=== PATIENT | female | born 1955 | race Caucasian/White ===

== ENCOUNTER 2017-09-24 21:21 | Emergency (ER) | payer MEDICAID ==
[~2017-09-24] VITALS: Ht 152.4 cm; Wt 54.0 kg
[~2017-09-24 21:21] MED LIST: BUTA-281 PO; DIAZ10TA4 PO; PANT20TA2 PO; TRAM50TA2 PO
[2017-09-24 21:40] VITALS: BP 102/75
[2017-09-24] MEDS ORDERED: acetaminophen 325mg tablet PO ONE (21:50)
[2017-09-24] MEDS ORDERED: CLIN300C70 PO (22:56)
[2017-09-24] MEDS ORDERED: TRAM50TA2 PO (22:56)
== END 2017-09-24 23:04 | disposition home or self-care (01) ==
LOC: ER 21:22
DX: K04.7 Periapical abscess without sinus (principal); G89.29 Other chronic pain; Z60.2 Problems related to living alone; Z79.899 Other long term (current) drug therapy; Z79.2 Long term (current) use of antibiotics
CPT/HCPCS: 99283

== ENCOUNTER 2018-04-02 12:14 | Emergency (ER) | payer MEDICAID ==
[~2018-04-02] VITALS: Ht 152.4 cm; Wt 63.6 kg
--- NOTE | 2018-04-02 13:29 | NUR ---
PT IN ROOM RESTING IN BED.
[2018-04-02 14:14] LABS: BASOPHILS % (AUTO) 0.3 % (0-1); EOSINOPHILS # (AUTO) 0.1 X10'3 (0-0.9); EOSINOPHILS % (AUTO) 1.8 % (0-6); HEMATOCRIT 41.7 % (35.0-45.0); HEMOGLOBIN 14.3 g/dl (12.0-16.0); LYMPHOCYTES # (AUTO) 2.1 X10'3 (1.1-4.8); LYMPHOCYTES % (AUTO) 26.3 % (21-51); MEAN CORPUSCULAR HGB CONC 34.3 % (33.0-36.5); MEAN CORPUSCULAR VOLUME 93.4 FL (78-98); MEAN PLATELET VOLUME 7.5 FL (7.4-10.4); MONOCYTES # (AUTO) 0.5 X10'3 (0-0.9); MONOCYTES % (AUTO) 6.1 % (2-12); NEUTROPHILS # (AUTO) 5.2 X10'3 (1.8-7.7); NEUTROPHILS % (AUTO) 65.5 % (42-75); PLATELET COUNT 463 X10'3 (140-440); RED BLOOD COUNT 4.46 X10'6 (4.20-5.60); WHITE BLOOD COUNT 7.9 X10'3 (4.5-11.0)
[2018-04-02 14:20] LABS: ALANINE AMINOTRANSFERASE 26 U/L (12-78); ALBUMIN 4.3 G/DL (3.4-5.0); ALBUMIN/GLOBULIN RATIO 1.1 (1.1-1.5); ALKALINE PHOSPHATASE 86 IU/L (46-116); ANION GAP 12 (8-16); ASPARTATE AMINO TRANSFERASE 22 U/L (10-37); BILIRUBIN,TOTAL 0.3 MG/DL (0.1-1.0); BLOOD UREA NITROGEN 10 MG/DL (7-18); BUN/CREATININE RATIO 11.8 (6.6-38.0); CALCIUM 9.5 MG/DL (8.5-10.1); CHLORIDE 100 MMOL/L (99-107); CREATININE 0.85 MG/DL (0.40-0.90); ETHANOL < 0.010 GM/DL (0.0-0.010); GLUCOSE 105 MG/DL (70-104); POTASSIUM 3.6 MMOL/L (3.5-5.1); SODIUM 139 MMOL/L (135-145); TOTAL CARBON DIOXIDE 26.8 MMOL/L (24-32); TOTAL PROTEIN 8.3 G/DL (6.4-8.2); eGFR 68 ML/MIN
--- NOTE | 2018-04-02 18:09 | NUR ---
I ASKED PT IF SHE WOULD PROVIDE A URINE SAMPLE FOR US IF I WALKED HER TO THE RESTROOM, OR IF SHE WANTED TO BE CATHETERIZED FOR THE SAMPLE. PT AGREED TO PROVIDE SAMPLE IN RESTROOM. I GUIDED HER TO THE RESTROOM AND CLEARLY EXPLAINED DIRECTIONS FOR GIVING A SAMPLE. PT VERBALIZED THAT SHE HAS GIVEN URINE SAMPLES BEFORE AND "KNOWS WHAT SHE IS DOING." PT IN RESTROOM FOR 5-6 MINUTES. SHE CAME OUT WITH EMPTY SPECIMEN CUP AND STATED THAT SHE "MISSED THE CUP," THEN QUICKLY SAID SHE "FORGOT ALL ABOUT IT." PT VERY AGITATED AND RESTLESS THROUGHOUT ENTIRE INTERACTION. NO URINE OBTAINED AT THIS TIME.
--- NOTE | 2018-04-02 18:30 | NUR ---
PATIENT ASKED FOR URINE SPECIMEN. PATIENT IS BELLIGERENT AND REFUSING TO GIVE SPECIMEN AT THE TIME. BEDSIDE COMMODE IN THE ROOM WITH COLLECTION HAT, TO ASSURE OBTAINING SPECIMEN.
--- NOTE | 2018-04-02 20:06 | NUR ---
PT FINALLY PLACED IN [facility] GOWN PER POLICY, CATHED FOR URINE WITH ASSIST OF SECURITY AND ER TECHS.
[2018-04-02 20:20] LABS: URINE HCG NEGATIVE (NEG)
[2018-04-02 20:26] LABS: URINE AMPHETAMINE SCREEN POSITIVE (Neg); URINE BARBITUATE SCREEN NEGATIVE (Neg); URINE BENZODIAZEPINES SCREEN NEGATIVE (Neg); URINE CANNABINOID SCREEN NEGATIVE (Neg); URINE COCAINE SCREEN NEGATIVE (Neg); URINE METHADONE SCREEN NEGATIVE (Neg); URINE OPIATE SCREEN NEGATIVE (Neg); URINE PHENCYCLIDINE SCREEN NEGATIVE (Neg)
[2018-04-02 20:53] LABS: CLARITY,URINE CLEAR (Clear); COLOR,URINE YELLOW (Yellow); GLUCOSE, URINE NEGATIVE (Neg); KETONES,URINE NEGATIVE (Neg); LEUKOCYTE ESTERASE ,URINE NEGATIVE (Neg); NITRITES, URINE NEGATIVE (Neg); OCCULT BLOOD,URINE TRACE-INTACT (Neg); PROTEIN,URINE NEGATIVE (Neg); UROBILINOGEN,URINE 0.2 E.U/dL (0.2-1.0)
[2018-04-02 20:59] LABS: UA COLLECTION TYPE STRAIGHT CATH
[2018-04-02 21:01] LABS: BACTERIA,URINE NONE SEEN /HPF (Neg); MUCUS STRANDS NONE SEEN /LPF (Neg); RBC,URINE 0-2 /HPF (0-2); SQUAMOUS EPITHELIAL CELL,UR NONE SEEN /LPF (FEW); TRANSITIONAL EPI CELLS,URINE FEW /HPF; WBC,URINE NONE SEEN /HPF (0-4)
[2018-04-02] MEDS ORDERED: LORazepam 2 mg/ml vial IM ONE (21:40)
[2018-04-02] MEDS ORDERED: OLANZapine **IM** 10 mg inj. IM ONE (21:40)
--- NOTE | 2018-04-02 21:50 | NUR ---
Patient moved to ER OF 27, patient yelling and screaming, patient spitting and stricking out at staff. ERP was notified who saw the patient and orders were given. Medications administered with staff assistance, and security in unit for back up.
--- NOTE | 2018-04-02 22:01 | NUR ---
Hacking and spitting, redirected, but does not appear to be capable of understanding directions at this time. Yelling out. Moved to opposite of nursing station to reduce environmental stimuli for patient and others.
--- NOTE | 2018-04-02 22:18 | NUR ---
Packet sent to [facility].
--- NOTE | 2018-04-02 22:58 | NUR ---
Is now resting in bed with sonorous respirations, appearing to sleep. Will monitor.
--- NOTE | 2018-04-02 23:57 | NUR ---
Laying in bed, eyes closed, resp are even and unlabored, appears to sleep. Will continue to monitor.
--- NOTE | 2018-04-03 01:29 | NUR ---
Resting in bed, appearing to sleep with even and unlabored respirations. No new concerns or issues noted, will continue to monitor.
--- NOTE | 2018-04-03 02:45 | NUR ---
Resting in bed, appearing to sleep, will monitor.
--- NOTE | 2018-04-03 03:08 | NUR ---
Sitting up on edge of bed, more alert, reoriented to time, place, situation. Patient back to sleep.
--- NOTE | 2018-04-03 04:23 | NUR ---
Resting in bed, appearing to sleep, will monitor.
--- NOTE | 2018-04-03 05:04 | NUR ---
Resting in bed, denies needs, vitals taken, will monitor.
[2018-04-03 05:30] VITALS: BP 109/64
--- NOTE | 2018-04-03 07:21 | NUR ---
Pt sleeing on right side, no distress noted. will continue to monitor.
--- NOTE | 2018-04-03 08:21 | NUR ---
pt alert and answering questions apprtopriately. ate full breakfast with no problems.
--- NOTE | 2018-04-03 08:31 | NUR ---
Call make to telepsyc. unable to see Que at this time. pt educated about telepsyc consult. verbalized understanding. #1 cart on at bedside.
--- NOTE | 2018-04-03 09:42 | NUR ---
[facility] evaluating patient now.
--- NOTE | 2018-04-03 09:56 | NUR ---
Spoke with telepsyc . stated will speak to pt shortly.
--- NOTE | 2018-04-03 11:05 | NUR ---
called [facility] for a ride home to [place]
== END 2018-04-03 11:39 | disposition home or self-care (01) ==
LOC: ER 12:14
DX: F29 Unspecified psychosis not due to a substance or known physiological condition (principal); F79 Unspecified intellectual disabilities; F15.90 Other stimulant use, unspecified, uncomplicated; B18.2 Chronic viral hepatitis C; G89.29 Other chronic pain; Z98.890 Other specified postprocedural states; Z79.899 Other long term (current) drug therapy
CPT/HCPCS: 36415; 80053; 80305; 80320; 81001; 81025; 85025; 96372; 99285; J2060

== ENCOUNTER 2024-03-24 03:06 | Emergency (ER) | payer MEDICARE, MEDICAID ==
[~2024-03-24] VITALS: Ht 152.4 cm; Wt 58.9 kg
[~2024-03-24 03:06] MED LIST changes: +BUTA-245 PO; -BUTA-281 PO
[2024-03-24 03:08] VITALS: BP 122/76; TEMP 97.9
[2024-03-24 03:48] LABS: BASOPHILS % (AUTO) 0.3 % (0-1); EOSINOPHILS # (AUTO) 0.1 X10'3 (0-0.9); EOSINOPHILS % (AUTO) 1.6 % (0-6); HEMOGLOBIN 12.6 g/dl (12.0-16.0); LYMPHOCYTES # (AUTO) 2.7 X10'3 (1.1-4.8); LYMPHOCYTES % (AUTO) 32.4 % (21-51); MEAN CORPUSCULAR HEMOGLOBIN 32.6 PG (27.0-31.0); MEAN CORPUSCULAR HGB CONC 34.8 g/dL (33.0-36.5); MEAN CORPUSCULAR VOLUME 93.5 FL (78-98); MEAN PLATELET VOLUME 7.7 FL (7.4-10.4); MONOCYTES # (AUTO) 0.7 X10'3 (0-0.9); MONOCYTES % (AUTO) 8.3 % (2-12); NEUTROPHILS # (AUTO) 4.8 X10'3 (1.8-7.7); NEUTROPHILS % (AUTO) 57.4 % (42-75); PLATELET COUNT 366 X10'3 (140-440); RED BLOOD COUNT 3.86 X10'6 (4.20-5.60); RED CELL DISTRIBUTION WIDTH 12.9 % (11.5-14.5); WHITE BLOOD COUNT 8.4 X10'3 (4.5-11.0)
[2024-03-24] MEDS: ipratropium/albuterol 3ml nebule NEB ONE (04:00)
[2024-03-24 04:03] VITALS: PULSE 87; RESP 16; O2SAT 93
[2024-03-24 04:09] VITALS: PULSE 89; RESP 26; O2SAT 99
[2024-03-24 04:10] LABS: ALBUMIN 3.3 G/DL (3.4-5.0); ANION GAP 10 (8-16); BLOOD UREA NITROGEN 11 MG/DL (7-18); BUN/CREATININE RATIO 13.6 (10.0-20.0); CALCIUM 8.8 MG/DL (8.5-10.1); CHLORIDE 101 MMOL/L (99-107); CREATININE 0.81 MG/DL (0.40-0.90); GLUCOSE 116 MG/DL (70-104); POTASSIUM 3.8 MMOL/L (3.5-5.1); PRO BRAIN NATRIURETIC PEPTIDE 87 PG/ML (0-125); SODIUM 136 MMOL/L (135-145); TOTAL CARBON DIOXIDE 24.9 MMOL/L (24-32); eCRCL 49 ML/MIN; eGFR 71 ML/MIN
[2024-03-24 04:31] VITALS: PULSE 92; RESP 17; O2SAT 98
[2024-03-24] MEDS ORDERED: DOXY-1 PO (05:27)
== END 2024-03-24 04:32 | disposition left against medical advice (07) ==
LOC: ER 03:07
DX: J20.9 Acute bronchitis, unspecified (principal); G89.29 Other chronic pain; M54.9 Dorsalgia, unspecified; Z98.890 Other specified postprocedural states; Z60.2 Problems related to living alone; Z79.899 Other long term (current) drug therapy
CPT/HCPCS: 36415; 71045; 80048; 83880; 84484; 85025; 93005; 94640; 94760; 99285